=== PATIENT | male | born 1985 | race Caucasian/White ===

== ENCOUNTER 2019-08-10 13:38 | Inpatient (IN) ==
--- NOTE | 2019-08-10 14:56 | Diag Imaging Result Doc PS360 ---
CHEST-2 VIEWS - 08/10/2019 INDICATION: SOB COMPARISON: None FINDINGS: The lungs are normally expanded and clear. Heart size and mediastinal contours are normal. No pneumothorax or pleural effusion. IMPRESSION: Negative exam. Electronically signed by Yuval Morales 08/10/2019 2:53 PM
[2019-08-10 15:10] LABS: BASO# 0.04 X1000 (0.0-0.2); BASO% 0.3 % (0.0-0.8); EOS# 0.04 X1000 (0.0-0.7); EOS% 0.3 % (0.0-10.0); HEMATOCRIT 49.7 % (42.0-52.0); HEMOGLOBIN 17.3 g/dL (14.0-18.0); IMM GRAN# 0.06 X1000 (0.0-0.04); IMM GRAN% 0.4 % (0.0-0.5); LYMPH# 1.68 X1000 (1.2-3.4); LYMPH% 11.5 % (20.5-51.1); MCH 32.5 PG (27-31); MCHC 34.8 g/dL (33-37); MCV 93.2 FL (81-99); MONO# 1.53 X1000 (0.11-0.59); MONO% 10.4 % (1.7-9.3); MPV 10.7 FL (7.4-10.4); NEUT# 11.32 X1000 (1.4-6.5); NEUT% 77.1 % (42.2-75.2); PLT 134 X1000 (130-400); RBC 5.33 XMIL (4.7-6.1); RDW 12.9 % (11.5-14.5); WBC 14.67 X1000 (4.8-10.8)
[2019-08-10 15:12] LABS: INR 1.03; PROTIME 13.6 Seconds (11.0-16.0)
[2019-08-10 15:13] LABS: PTT 28.3 Seconds (22.3-41.8)
[2019-08-10 15:18] LABS: AGAP 20; ALB/GLOB RATIO 1.3; ALBUMIN 3.9 g/dL (3.5-5.0); ALKALINE PHOSPHATASE 65 U/L (32-122); BUN 8 mg/dL (8-22); CALCIUM 9.1 mg/dL (8.8-10.2); CHLORIDE 98 mmol/L (98-107); CK PROFILE 97 U/L (24-204); COSMO 273; ESTIMATED GFR > 60; GLUCOSE 116 mg/dL (70-104); GOT 33 U/L (10-34); GPT 79 U/L (10-44); POTASSIUM 3.4 mmol/L (3.5-5.1); SODIUM 137 mmol/L (136-145); TCO2 19 mmol/L (25-35); TOTAL BILIRUBIN 1.18 mg/dL (0.20-1.00); TOTAL PROTEIN 6.8 g/dL (6.3-8.3)
[2019-08-10 15:28] LABS: EOS 1 % (1-10); LYMPHS 5 % (21-51); MONO 12 % (1-9); SEGS 81 % (42-75)
[2019-08-10] MEDS ORDERED: NS 1,000 ML IV ONE (15:30)
--- NOTE | 2019-08-10 17:19 | Diag Imaging Result Doc PS360 ---
CT ANGIOGRM PULMONARY ARTERIES - 08/10/2019 INDICATION: SOB TECHNIQUE: Axial CT images were obtained after administering intravenous contrast. Coronal MIP images were generated. COMPARISON: None FINDINGS: There are extensive bilateral pulmonary emboli filling every main, lobar, and segmental pulmonary artery. There is right ventricular strain with enlargement of the right ventricle. The lungs are clear of infiltrate. Upper abdominal images are normal. Bones are intact. IMPRESSION: Extensive bilateral pulmonary emboli with a high clot burden. Evidence of right ventricular strain. This report was discussed with Dr. Vargas on 08/10/2019 at 5:10 PM and was readback. This exam was performed using automated exposure control, adjustment of mA or kV according to patient size, and/or use of iterative reconstruction technique Electronically signed by Yuval Morales 08/10/2019 5:16 PM
[2019-08-10 17:24] LABS: URINE SOURCE CLEAN CATCH
[2019-08-10 17:30] LABS: BILIRUBIN URINE NEGATIVE (NEGATIVE); BLOOD URINE NEGATIVE (NEGATIVE); COLOR ORANGE; GLUCOSE URINE NEGATIVE (NEGATIVE); KETONE URINE 40 mg/dL (NEGATIVE); LEUKOCYTES URINE NEGATIVE (NEGATIVE); NITRITE URINE NEGATIVE (NEGATIVE); PH URINE 7.5; PROTEIN URINE 50 mg/dL (NEGATIVE); TURBIDITY URINE CLEAR (CLEAR); UROBILINOGEN URINE NORMAL (NORMAL)
[2019-08-10 17:31] LABS: UR EPITHELIAL CELLS <10 /HPF (<10); URINE BACTERIA NEGATIVE /HPF; URINE RBC <10 /HPF (<10); URINE WBC <10 /HPF (<10)
[2019-08-10 17:38] LABS: SP GRAVITY URINE 1.005
[2019-08-10 17:40] LABS: UR AMPHETAMINES QUAL NONE DETECTED (NONE DETECT); UR BARBITUATES QUAL NONE DETECTED (NONE DETECT); UR BENZODIAZEPIN QUAL NONE DETECTED (NONE DETECT); UR CANNABINOIDS QUAL NONE DETECTED (NONE DETECT); UR COCAINE QUAL NONE DETECTED (NONE DETECT); UR METHADONE QUAL NONE DETECTED (NONE DETECT); UR OPIATES QUAL NONE DETECTED (NONE DETECT); UR OXYCODONE QUAL NONE DETECTED (NONE DETECT); UR PCP QUAL NONE DETECTED (NONE DETECT)
[2019-08-10] MEDS ORDERED: HEPARIN IV ONE (17:48)
--- NOTE | 2019-08-10 17:52 | PROVIDER DOCUMENTATION ---
This chart was entered by Chery Bazzi Scribe, acting as scribe for Eva Bender MD. HPI-General Adult - General Chief Complaint: Palpitations Stated Complaint: ABNORMAL EKG Time Seen by Provider: 08/10/19 13:59 Source: patient, family (mother) Allergies/Adverse Reactions: Patient Allergies Allergy/AdvReac Type Severity Reaction Status Date / Time No Known Allergies Allergy Verified 08/10/19 14:06 Home Medications: Home Medication List Medication Instructions Recorded Confirmed Last Taken Type Carvedilol [Coreg] 12.5 mg PO BID #60 tab 08/15/19 Unknown Rx Omeprazole 40 mg PO DAILY #30 capsule.dr 08/15/19 Unknown Rx Rivaroxaban [Xarelto] 15 mg PO BID #40 tab 08/15/19 Unknown Rx Rivaroxaban [Xarelto] 20 mg PO DAILY #90 tab 08/15/19 Unknown Rx - History of Present Illness -Gen Adult Nature of Presenting Problems: Pt is a 34 yowm complaining of SOB and irregular heart rate from the clinic. Pt states that he had a virus last week and was taking the prescribed cough me dicine when he experienced a LOC in his bedroom. Pt rested the rest of the day and Monday but any activity causes him to lose his breath. Pt appears sweaty but nontoxic in appearance. Location of Pain/Injury: reports: chest (2 days ago, pt stated it felt like a pulled muscle) Pain Radiation: reports: no radiation Quality of Pain: reports: tightness Severity: reports: mild Onset/Duration: reports: 2 days ago Timing: reports: gone now Context/Activities at Onset: reports: light activity Modifying Factors: improves with: lying down. worse with: coughing, exercise Associated Symptoms: reports: syncope (), weakness Review of Systems - Adult - REVIEW OF SYSTEMS - ADULT Constitutional: reports: no symptoms reported Eyes: reports: no symptoms reported Ears, Nose, Mouth & Throat: reports: no symptoms reported Cardiovascular: reports: see HPI, chest pain, syncope () Respiratory: reports: see HPI, cough, shortness of breath Gastrointestinal: denies: abdominal pain, nausea, vomiting Genitourinary: reports: no symptoms reported Musculoskeletal: reports: no symptoms reported Integumentary: reports: no symptoms reported Neurological: reports: see HPI, syncope () Psychiatric: reports: no symptoms reported Endocrine: reports: no symptoms reported Hematologic/Lymphatic: reports: no symptoms reported Allergic/Immunologic: reports: no symptoms reported All Other Systems: Reviewed and Negative Past History - Adult - PAST MEDICAL HISTORY-ADULT Review of Records: reports: Old Records Reviewed, Nursing Assessment Review, Medications Reviewed, Social history reviewed & non-contributory. Major Childhood Illnesses: reports: denies history Cardiovascular: reports: denies history Respiratory: reports: denies history Gastrointestinal: reports: denies history Obstetrical/Gynecological: reports: denies history Genitourinary: reports: denies history Musculoskeletal: reports: denies history Neurological: reports: denies history Endocrine/Immune: reports: denies history Other Conditions: reports: denies history - IMMUNIZATION STATUS Childhood Immunizations: See Nurse Assessment Flu Vaccine: See Nurse Assessment - SOCIAL HISTORY Smoking: cigarettes, greater than 1 pack/day Substance Use: alcohol Alcohol Use Frequency: every day Number of drinks per typical drinking period:: 5-10 drinks Living Situation: alone Physical Exam-General - PHYSICAL EXAM-ADULT Initial Vital Signs Reviewed: Yes (HR 143) - CONSTITUTIONAL General Appearance: appears well, alert, no apparent distress, obese - EYES Eyes: PERRL/EOMI - HEAD, EARS, NOSE, MOUTH & THROAT HENMT: normocephalic/atraumatic, moist mucous membranes, pharyngeal erythema. negative: tonsillar exudate - NECK Neck: non-tender, full range of motion, supple. negative: trachial deviation, tender midline, thyromegaly - RESPIRATORY Respiratory: chest non-tender, lungs clear, normal breath sounds, other (tachypneic) - CARDIOVASCULAR Cardiovascular: normal peripheral pulses, tachycardia - GASTROINTESTINAL (ABDOMEN) Abdominal Exam: normal bowel sounds, non tender, soft - MUSCULOSKELETAL Back Exam: no CVA tenderness, no vertebral tenderness Extremity: normal range of motion, non-tender, normal gait - SKIN Integumentary: normal color, normal turgor, warm/dry - NEUROLOGIC Neurologic: grossly normal - PSYCHIATRIC Psych/Mental Status: normal mood/affect, normal thought content, normal thought process, oriented x 3 Progress - PLAN OF CARE/RESULTS Progress/Plan/Lab Results: Vital Signs - 8 hr 08/10/19 13:39 08/10/19 13:43 08/10/19 13:51 Temperature 98.8 F 98.5 F Pulse Rate 143 H 146 H 136 H Respiratory Rate 20 21 16 Blood Pressure 128/106 O2 Sat by Pulse Oximetry 96 96 Orders Category Date Time Status Cardiac Monitoring DIRECTED Care 08/10/19 14:08 Active IV Insertion ORDERED Care 08/10/19 14:08 Active Notify MD of + Sepsis Screen NOW Care 08/10/19 14:08 Active Notify Physician As Ordered Care 08/10/19 14:08 Active CHEST-1 VIEW [RAD] Stat Exams 08/10/19 14:08 Ordered BLOOD CULTURE [BLDCUL] Stat Lab 08/10/19 14:08 Uncollected CBC WITH DIFF [HEME] Stat Lab 08/10/19 14:08 Uncollected CK PROFILE [SP CHEM] Stat Lab 08/10/19 14:08 Uncollected COMPREHENSIVE METABOLIC PANEL [CHEM] Stat Lab 08/10/19 14:08 Uncollected LACTATE, PLASMA [CHEM] Lab 08/10/19 14:15 Uncollected LACTATE, PLASMA [CHEM] Lab 08/10/19 17:15 Uncollected LACTATE, PLASMA [CHEM] Lab 08/10/19 20:15 Uncollected PROTIME WITH INR [COAG] Stat Lab 08/10/19 14:08 Uncollected PTT [COAG] Stat Lab 08/10/19 14:08 Uncollected TROPONIN T Stat Lab 08/10/19 14:08 Uncollected URINALYSIS W/POSS RFLX CULT [URINALYSIS] Stat Lab 08/10/19 14:08 Uncollected Oxygen Device Stat Oth 08/10/19 14:08 Active Result Diagrams: 08/15/19 05:30 08/15/19 05:30 - REASSESSMENT Reassessment #1 Time Reassessed: 15:29 Status: other (labs reviewed showing elevated WBC, CXR neg, strep and flu neg. awaiting dimer.) Reassessment #2 Time Reassessed: 15:49 Status: other (not currently concerned for sepsis with normal lactate. Elevated d-dimer, will get CTAPE) Reassessment #3 Time Reassessed: 20:49 Status: other (elevated blood pressure, will give hydralazine) - EKG 1 Time of EKG reading by physician:: 13:58 EKG Read and Signed by:: Stanislav Vargas EKG Interpretation (*Must complete 3 of following elements*): Abnormal Rate: 136 Rhythm: Sinus tachycardia ST Wave: non-specific ST changes (ST & T wave abnormality, consider iferior ischemia; ST & T wave abnormality, consider anterolateral ischemia) - XRAY 1 XRAY Study: Chest Impression: See EMR Report (CHEST-2 VIEWS - 08/10/2019 INDICATION: SOB COMPARISON: None FINDINGS: The lungs are normally expanded and clear. Heart size and mediastinal contours are normal. No pneumothorax or pleural effusion. IMPRESSION: Negative exam. Electronically signed by Yuval Morales 08/10/2019 2:53 PM 08/10/19 3312 Interpreting Physician: Yuval Morales MD Dictated Date/Time: 08/10/19 1459 cc: Eva Bender MD; None,PCP) - CT/MRI 1 CT Study: Angiogram Impression: See EMR Report (CT ANGIOGRM PULMONARY ARTERIES - 08/10/2019 INDICATION: SOB TECHNIQUE: Axial CT images were obtained after administering intravenous contrast. Coronal MIP images were generated. COMPARISON: None FINDINGS: There are extensive bilateral pulmonary emboli filling every main, lobar, and segmental pulmonary artery. There is right ventricular strain with enlargement of the right ventricle. The lungs are clear of infiltrate. Upper abdominal images are normal. Bones are intact. IMPRESSION: Extensive bilateral pulmonary emboli with a high clot burden. Evidence of right ventricular strain. This report was discussed with Dr. Vargas on 08/10/2019 at 5:10 PM and was readback. This exam was performed using automated exposure control, adjustment of mA or kV according to patient size, and/or use of iterative reconstruction technique Electronically signed by Yuval Morales 08/10/2019 5:16 PM) Departure - Departure Date of Disposition Decision: 08/10/19 Time of Disposition Decision: 20:11 DIAGNOSIS: Pulmonary emboli, Tachycardia Disposition: ADMITTED INPATIENT 09 Certified Medical Emergency: Emergent Condition: Stable - Critical Care Note This patient required my direct & personal management of CC.: Yes Total Time (mins): 35 Critical Care Statement: This patient required my direct personal management to treat or rule out processes, the absence of which, could potentiallly result in sudden, clinically significant life or limb threatening deterioration. Attestation - Physician/ DAQUAN Attestation Patient care was provided by Advanced Practice Provider:: No The physician spent face to face time with patient:: Yes Advanced Practice Provider documentation review:: Supervising physician onsite and consulted in the evaluation and care of this patient. The physician did have a face to face encounter with the patient. This chart was documented by the indicated scribe, (Chery Bazzi, Shahram) and accurately reflects the services I performed and decisions made by me, Eva Bender MD, as attested by the provider's signature.
[2019-08-10] MEDS ORDERED: HEPARIN 25,000 UNITS/D5W 25,000 UNIT/250 ML IV.SOLN IV SCH (18:00)
[2019-08-10] MEDS ORDERED: APRESOLINE IV ONE (20:43)
[2019-08-10] MEDS ORDERED: KLOR-CON PO ONE (22:03)
[2019-08-10] MEDS ORDERED: LABETALOL IV PRN (22:05)
[2019-08-10] MEDS ORDERED: COREG PO ONE (22:08)
[2019-08-10] MEDS: NS 1,000 ML IV SCH (23:46)
--- NOTE | 2019-08-11 05:48 | HISTORY AND PHYSICAL ---
CHIEF COMPLAINT: Palpitations. HISTORY OF PRESENT ILLNESS: Mr Sami Michelle is a 34-year-old male who does not have any significant past medical history. However, he indicates about 2 weeks ago he did have an upper respiratory infection and went to an Urgent Care Facility, [facility] in [place], and he did receive treatment, following which the patient has continued to have cough, chest pain, shortness of breath as well as palpitations. He also describes having syncope on 1 occasion. The patient now presents to the hospital because of palpitations and during the evaluation in the ER, he had a pulmonary angiogram done, which showed evidence of extensive bilateral pulmonary emboli with high clot burden. There is also evidence of right ventricular strain. The patient has been started on heparin. PAST MEDICAL HISTORY: Unremarkable. PAST SURGICAL HISTORY: He has had tubes in both tympanic membranes in the past. SOCIAL HISTORY: He smokes cigarettes, 1 pack of cigarettes per day. Drinks about 5 to 7 beers per day. Denies any drug use. ALLERGIES: No known drug allergies. FAMILY HISTORY: Positive for diabetes. HOME MEDICATIONS: None. REVIEW OF SYSTEMS: Constitutional: No fever. 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 Eyes: Refractive error. Ears: No hearing loss. Cardiovascular: Chest pain. Respiratory: Cough. Gastrointestinal: No nausea, vomiting. Has diarrhea with abdominal pain. genitourinary: No dysuria. Hematology: No bleeding problems. Psychiatric: No anxiety or depression. Musculoskeletal: No joint pains. Endocrinology: No diabetes or thyroid disease. PHYSICAL EXAMINATION: VITAL SIGNS ARE FOLLOWS: Temperature is 97.9 degrees, pulse 128, respiratory 22, blood pressure 155/99, oxygen saturation is 100%. HEENT: Atraumatic, normocephalic. Eyes anicteric. No oral lesions. NECK: No lymphadenopathy or thyromegaly. CARDIOVASCULAR: S1, S2. RESPIRATORY: Evidence of good air entry bilaterally. ABDOMEN: Soft, nontender. No masses felt. EXTREMITIES: No evidence of edema. CENTRAL NERVOUS SYSTEM: No obvious focal neurologic deficits noted. LABS: CBC: WBC is 14.67, hematocrit is 49.7 with a platelet count of 134,000. Sodium is 137, potassium 3.4 chloride 98, bicarb is 19, BUN is 8, creatinine 1.0. ALT is 79. Urine drug screen is negative. Chest x-ray shows normal study. Pulmonary angiogram showed evidence of extensive bilateral pulmonary emboli with high clot burden; also evidence of right ventricular strain. ASSESSMENT AND PLAN: 1. Acute pulmonary thromboembolism. We will start the patient on heparin infusion. Obtain venous Doppler study of both lower extremities. Also, obtain a 2D echo of the heart in light of right ventricular strain. 2. Hypertension. Optimize blood pressure control using both parenteral as well as oral agents. 3. Alcoholism. Maintain patient on delirium tremens prophylaxis, along with thiamine, folic acid and also multivitamin. Check magnesium and phosphorus levels. 4. Gastrointestinal prophylaxis. Proton pump inhibitor. cc: Solis Morton MD
[2019-08-11] MEDS ORDERED: LIBRIUM PO PRN (06:21)
[2019-08-11 06:38] LABS: BASO# 0.03 X1000 (0.0-0.2); BASO% 0.2 % (0.0-0.8); EOS% 0.8 % (0.0-10.0); HEMATOCRIT 47.6 % (42.0-52.0); IMM GRAN# 0.06 X1000 (0.0-0.04); IMM GRAN% 0.5 % (0.0-0.5); LYMPH# 2.29 X1000 (1.2-3.4); LYMPH% 17.9 % (20.5-51.1); MCH 32.1 PG (27-31); MCHC 33.6 g/dL (33-37); MCV 95.6 FL (81-99); MONO# 1.39 X1000 (0.11-0.59); MONO% 10.9 % (1.7-9.3); MPV 11.1 FL (7.4-10.4); NEUT# 8.89 X1000 (1.4-6.5); NEUT% 69.7 % (42.2-75.2); PLT 136 X1000 (130-400); RBC 4.98 XMIL (4.7-6.1); RDW 13.1 % (11.5-14.5); WBC 12.76 X1000 (4.8-10.8)
[2019-08-11] MEDS: PRILOSEC PO SCH (06:46)
[2019-08-11 07:16] LABS: MAGNESIUM 1.6 mg/dL (1.5-2.7); PHOSPHORUS 2.1 mg/dL (2.7-4.5)
[2019-08-11] MEDS ORDERED: HEPARIN IV PRN (07:25)
[2019-08-11] MEDS ORDERED: SODIUM PHOSPHATE 35 MMOL in NS 250 ML IV ONE (07:51)
[2019-08-11] MEDS: FOLIC ACID PO SCH (08:06)
[2019-08-11] MEDS: VITAMIN B-1 PO SCH (08:06)
[2019-08-11] MEDS ORDERED: COREG PO ONE (08:12)
[2019-08-11] MEDS ORDERED: KLOR-CON PO SCH (09:00)
[2019-08-11] MEDS ORDERED: COREG PO SCH (09:00)
[2019-08-11 09:09] LABS: AGAP 25; BUN 7 mg/dL (8-22); CALCIUM 9.1 mg/dL (8.8-10.2); CHLORIDE 102 mmol/L (98-107); COSMO 282; CREATININE 0.9 mg/dL (0.7-1.2); GLUCOSE 110 mg/dL (70-104); POTASSIUM 3.5 mmol/L (3.5-5.1); SODIUM 142 mmol/L (136-145); TCO2 15 mmol/L (25-35)
--- NOTE | 2019-08-11 09:13 | PROGRESS NOTE ---
DATE: 08/11/2019 SUBJECTIVE: The patient reports still short of breath with some chest discomfort but better in comparing with yesterday. OBJECTIVE: Vital Signs: Temperature 99.9, heart rate 112, respiratory rate 17, blood pressure 142/90, O2 saturation 96% on 2 L nasal cannula. General Examination: This is a 34-year-old, morbidly obese, male, lying in bed, in no acute distress. Cardiovascular Examination: S1 and S2 heard. No murmurs, gallops, or rubs. Regular rate and rhythm. Respiratory Examination: Clear bilaterally to auscultation. No work of breathing or using accessory muscles. Abdomen: Soft, nontender to palpation. Bowel sounds present. No organomegaly. Extremities: No clubbing, cyanosis, or edema. Peripheral pulses present in both legs. Neurological Examination: The patient is alert and oriented x3. Moves 4 extremities. Laboratory Data: White cell count 12.76, hemoglobin 16.0, hematocrit 47.6, platelets 136,000. BMP is pending. Phosphorus 2.1. ASSESSMENT AND PLAN: 1. Acute pulmonary embolism. Patient has been started since admission on a heparin drip. At admission, also they decided to check troponins. Two have been checked and those are normal. An echocardiogram has been ordered also to rule out any right ventricular strain. We will continue to monitor this patient closely. 2. Hypertension. Blood pressure is under control. We will continue with the same management. 3. Alcoholism. We will continue with delirium tremens prophylaxis and thiamine. We will continue to monitor this patient closely here in the PVC unit. cc: Mario Domínguez MD
--- NOTE | 2019-08-11 09:58 | EKG Report ---
Test Performed on : 08/11/2019 07:07:46 AM Test Reason : TACHYCARDIA Blood Pressure : / mmHG Vent. Rate : 112 BPM Atrial Rate : 112 BPM P-R Int : 136 ms QRS Dur : 090 ms QT Int : 344 ms P-R-T Axes : 053 067 -17 degrees QTc Int : 469 ms Sinus tachycardia. T wave abnormality, consider inferior ischemia T wave abnormality, consider anterior ischemia Abnormal ECG When compared with ECG of 10-AUG-2019 13:51, (Unconfirmed) Nonspecific T wave abnormality has replaced inverted T waves in Lateral leads Confirmed by Bobby TIMMONS, Juan Manuel ([id number]) on 08/12/2019 8:38:28 AM
[2019-08-11] MEDS: HEPARIN 25,000 UNITS/D5W 25,000 UNIT/250 ML IV.SOLN IV SCH (11:09)
[2019-08-11] MEDS: NS 1,000 ML IV SCH (13:08)
--- NOTE | 2019-08-11 13:30 | Diag Imaging Result Doc PS360 ---
US ABDOMEN-COMPLETE - 08/11/2019 INDICATION: abnormal lfts COMPARISON: Chest CT from earlier FINDINGS: There is severe diffuse fatty change of the liver. The gallbladder, pancreas, spleen, and both kidneys are normal. There is a left renal cyst measuring 1.9 cm. The spleen measures 11.8 x 3.4 c m. Common bile duct measures 3 mm. Aorta, IVC, and main portal vein are patent. IMPRESSION: Severe fatty liver. Electronically signed by Yuval Morales 08/11/2019 1:28 PM
[2019-08-11 21:27] LABS: ALLEN TEST YES; BLOOD TYPE ARTERIAL; HCO3-(ACT) 21.7 mmoll (20.0-26.0); MODALITY CANNULA; O2(CT) 21.8 mL/dL (15.0-23.0); O2HB 95.3 % (95.0-99.0); PCO2(98.6) 22 mmHg (35-45); PO2(98.6) 78 mmHg (60-100); SAMPLE BLOOD; SAO2 97.5 % (95.0-100.0); THB 16.3 g/dL (11.5-17.4); pH(98.6) 7.49 (7.35-7.45)
[2019-08-11] MEDS: COREG PO SCH (22:11)
--- NOTE | 2019-08-11 22:32 | EKG Report ---
Test Performed on : 08/11/2019 9:14:53 PM Test Reason : Near-Syncope,Dyspnea,Hypoxia Blood Pressure : / mmHG Vent. Rate : 123 BPM Atrial Rate : 123 BPM P-R Int : 138 ms QRS Dur : 092 ms QT Int : 314 ms P-R-T Axes : 050 075 -26 degrees QTc Int : 449 ms Sinus tachycardia. Incomplete right bundle branch block ST & T wave abnormality, consider inferior ischemia ST & T wave abnormality, consider anterolateral ischemia Abnormal ECG When compared with ECG of 11-AUG-2019 07:07, (Unconfirmed) Incomplete right bundle branch block is now present Confirmed by Bobby TIMMONS, Juan Manuel ([id number]) on 08/12/2019 7:21:34 PM
[2019-08-12] MEDS: HEPARIN 25,000 UNITS/D5W 25,000 UNIT/250 ML IV.SOLN IV SCH ×2 (00:46→14:00)
[2019-08-12] MEDS: NS 1,000 ML IV SCH ×2 (00:47→13:58)
[2019-08-12 04:04] LABS: BASO# 0.06 X1000 (0.0-0.2); BASO% 0.4 % (0.0-0.8); EOS# 0.13 X1000 (0.0-0.7); EOS% 0.9 % (0.0-10.0); HEMATOCRIT 43.7 % (42.0-52.0); IMM GRAN# 0.11 X1000 (0.0-0.04); IMM GRAN% 0.8 % (0.0-0.5); LYMPH# 3.41 X1000 (1.2-3.4); LYMPH% 23.9 % (20.5-51.1); MCHC 34.3 g/dL (33-37); MCV 96.3 FL (81-99); MONO# 1.48 X1000 (0.11-0.59); MONO% 10.4 % (1.7-9.3); MPV 10.8 FL (7.4-10.4); NEUT% 63.6 % (42.2-75.2); PLT 118 X1000 (130-400); RBC 4.54 XMIL (4.7-6.1); RDW 13.2 % (11.5-14.5); WBC 14.29 X1000 (4.8-10.8)
[2019-08-12 04:38] LABS: AGAP 18; BUN 12 mg/dL (8-22); CALCIUM 8.2 mg/dL (8.8-10.2); CHLORIDE 106 mmol/L (98-107); COSMO 282; CREATININE 1.1 mg/dL (0.7-1.2); ESTIMATED GFR > 60; GLUCOSE 116 mg/dL (70-104); PHOSPHORUS 3.9 mg/dL (2.7-4.5); POTASSIUM 3.6 mmol/L (3.5-5.1); SODIUM 141 mmol/L (136-145); TCO2 17 mmol/L (25-35)
[2019-08-12] MEDS: PRILOSEC PO SCH ×2 (05:47→06:51)
--- NOTE | 2019-08-12 07:40 | EKG Report ---
Test Performed on : 08/10/2019 1:51:50 PM Test Reason : ED. NO EKG ORDER FOR MUSE Blood Pressure : / mmHG Vent. Rate : 136 BPM Atrial Rate : 136 BPM P-R Int : 114 ms QRS Dur : 092 ms QT Int : 334 ms P-R-T Axes : 018 057 -05 degrees QTc Int : [address] & T wave abnormality, consider inferior ischemia ST & T wave abnormality, consider anterolateral ischemia Abnormal ECG No previous ECGs available Unconfirmed Result
[2019-08-12] MEDS: COREG PO SCH ×2 (09:10→21:26)
[2019-08-12] MEDS: VITAMIN B-1 PO SCH (09:11)
[2019-08-12] MEDS: FOLIC ACID PO SCH (09:11)
[2019-08-12 10:06] LABS: HEPATITIS PROFILE ACUTE SEE COMMENTS
--- NOTE | 2019-08-12 12:33 | PROGRESS NOTE ---
DATE: 08/12/2019 SUBJECTIVE: Patient reports feeling still short of breath, but less in comparing with yesterday. No chest pressure. OBJECTIVE: Vital Signs: Temperature 98.7 degrees, heart rate 100, respiratory rate 22, blood pressure 100/83, O2 saturation 98% on 5 L nasal cannula. General Examination: This is a 34-year- old, morbidly obese, male, lying in bed in no acute distress. Cardiovascular exam: S1 and S2 heard. No murmurs, gallops, or rubs. Regular rate and rhythm. Respiratory exam: Clear bilaterally to auscultation. No work of breathing or using accessory muscles. Abdomen: Soft, nontender to palpation. Bowel sounds present. No organomegaly. Extremities: No clubbing, cyanosis, or edema. Peripheral pulses present in both legs. Neurological exam: Patient alert and oriented x3. Moves 4 extremities. LABORATORY DATA: Repeat white blood cell count is 14,000. ASSESSMENT AND PLAN: 1. Acute respiratory failure secondary to pulmonary embolism. The patient continues to be on heparin drip. Clinically, this patient is still short of breath, requiring 5 liters of oxygen by nasal cannula. The patient reports still feeling short of breath when he tries to walk some. Troponin has been checked for right heart strain and does appear negative. Echocardiogram has been done today and has not been read yet. At this point, we will continue with current management. 2. Deep vein thrombosis in both lower extremities. That has been confirmed yesterday. Actually we will continue with the same treatment with heparin drip. 3. Alcoholism. Will continue with deep vein thrombosis prophylaxis and thiamine. We will continue to monitor this patient closely here in the PVC unit. cc: Mario Domínguez MD
--- NOTE | 2019-08-12 17:21 | HEMO/ONC CONSULTATION ---
DATE: 08/12/2019 Patient seen in initial consultation regarding PTE at the request of Dr. Carroll. HPI: Sami was a healthy 34-year-old man who developed fevers and chills approximately 2 weeks ago and was seen by Urgent Care. His symptoms were improving but he stayed in the bed for 3 or 4 days and then subsequently developed increasing shortness of breath and palpitations, as well as 1 episode of syncope. He presented to the emergency room for the same and was found on CT angio to have extensive bilateral pulmonary emboli with high clot burden and evidence of right ventricular strain. He has been started on heparin and has noted some improvement but persistent dyspnea is still present. PAST MEDICAL HISTORY: None prior. PAST SURGICAL HISTORY: Tympanic tubes as a child. ALLERGIES: No known drug allergies. MEDICATIONS AT HOME: None. SOCIAL HISTORY: Patient smokes 1 pack per day of cigarettes for the last 10 years. He drinks 5 or 6 beers per day. Denies any illicit drug use. FAMILY MEDICAL HISTORY: Is positive for diabetes but no family history of thrombosis that he or his mother is aware of. REVIEW OF SYSTEMS: Pertinent positives and negatives as per HPI. All other review of systems are negative. PHYSICAL EXAMINATION: Temperature 98.7 degrees, pulse 100, respiratory rate 22, blood pressure 100/83, O2 saturation 98% on 5 L nasal cannula.General: This is an obese, chronically ill- appearing man in no acute distress. His mother is at the bedside during consultation. Eyes: Sclerae anicteric. Cardiovascular: Regular rate and rhythm. Normal S1, S2. No murmurs, rubs, or gallops. Pulmonary: Lungs clear auscultation bilaterally without wheezes, rales, rhonchi. Abdomen: Obese but soft, nontender, nondistended with normoactive bowel sounds. Extremities: 1+ bilateral pretibial edema. Neurologic: Alert and oriented x3. Gait not assessed as patient is in a hospital bed during consultation. Rest examination unremarkable. LABORATORY DATA: White count 14.3, hemoglobin 15, platelet count a 118,000. PTT 94.7. ABG pH 7.49, pCO2 22, PaO2 78 on 40% nasal cannula. Sodium 141, potassium 3.6, bicarb 17, creatinine 1.1, calcium 8.2. Troponin 0.024. IMAGING: Pulmonary arteriogram 08/10/2019 shows extensive bilateral pulmonary emboli with high clot burden and evidence of right ventricular strain. Per the patient, venous ultrasound showed right lower extremity DVT. ASSESSMENT AND PLAN: 1. Right lower extremity deep vein thrombosis and extensive pulmonary thromboembolism: Unprovoked. We discussed the natural history, prognosis, and treatment of deep vein thrombosis and pulmonary thromboembolism. Given his young age and essentially unprovoked deep vein thrombosis and extensive pulmonary thromboembolism I have recommended hypercoagulability workup. I have sent labs for Factor 5 Leiden and prothrombin gene testing as well as beta 2 glycoprotein and cardiolipin antibodies at this time. Other testing unable to be performed as patient has an acute clot and is on anticoagulation. I recommended at least 1 year of anticoagulation given his overall high risk of recurrence. Pending further workup, we can consider long-term anticoagulation if needed. When he is clinically stable I would recommend transitioning to novel oral anticoagulant such as Eliquis or Xarelto. I will see him back in the clinic as an outpatient for further management. 2. Right heart strain: Clinically he is improving. Troponins are negative. Echocardiogram is pending. Continue to monitor. 3. Alcoholism: Monitor closely for any evidence of withdrawal. Encouraged cutting back when he is discharged from the hospital. 4. Hypoxia: Related to PTE. Continue oxygen support. Wean as tolerated. This is a copy this dictation to Dr. Carroll. cc: Ruba Miller MD
--- NOTE | 2019-08-12 21:41 | ECHO REPORT ---
ORDER DATE: 08/10/2019 INTERPRETING PHYSICIAN: Dr. Quesada REQUESTING PHYSICIAN: Hospitalist. CLINICAL INDICATIONS: Pulmonary embolism. The study was technically very difficult. Optison was added to optimize visualization of endocardium. M-MODE MEASUREMENTS: Left ventricle end diastole: 2.8 cm. Left ventricle end systole: 2.4 cm. Posterior wall: 1.2 cm. Interventricular septum: 1.3 cm. Left atrium: 3.6 cm. Aortic diameter: 2.8 cm. SUMMARY OF 2-DIMENSIONAL IMAGIN. Left ventricular function is probably normal. There is flattening of the septum with paradoxical contractility. The right ventricle is markedly dilated and significantly hypokinetic. 2. The tricuspid valve shows moderate degree of regurgitation. 3. The pulmonary pressure is estimated at 46 to 51 mmHg. 4. The aortic valve has three cusps. Color flow mapping unremarkable. 5. The mitral valve looks grossly normal. 6. The pulse wave Doppler of mitral inflow shows mild reversal of the E and the A ratio. 7. Tissue Doppler of septal and lateral mitral annulus averages 8 cm. There is no diastolic dysfunction. 8. The pulmonic valve appears to be grossly within normal range. Color flow mapping shows no significant regurgitation. 9. There is no pericardial effusion, mass, and no thrombus. SUMMARY: This study is consistent with a significant pulmonary embolism with significant right ventricular enlargement and dysfunction. The left ventricle appears to be grossly normal. There is pulmonary hypertension estimated at 46 to 51 mmHg. Clinical correlation is recommended. cc: MD Solis Hernandez MD
[2019-08-12] MEDS ORDERED: BLISTEX MEDICATED BERRY LIP BALM TOP PRN (23:27)
[2019-08-13] MEDS: HEPARIN 25,000 UNITS/D5W 25,000 UNIT/250 ML IV.SOLN IV SCH ×3 (02:01→14:55)
[2019-08-13] MEDS: NS 1,000 ML IV SCH ×4 (02:02→17:15)
[2019-08-13 05:44] LABS: BASO# 0.04 X1000 (0.0-0.2); BASO% 0.4 % (0.0-0.8); EOS# 0.14 X1000 (0.0-0.7); EOS% 1.5 % (0.0-10.0); HEMATOCRIT 42.4 % (42.0-52.0); HEMOGLOBIN 13.8 g/dL (14.0-18.0); IMM GRAN# 0.07 X1000 (0.0-0.04); IMM GRAN% 0.8 % (0.0-0.5); LYMPH# 2.66 X1000 (1.2-3.4); LYMPH% 29.1 % (20.5-51.1); MCH 32.4 PG (27-31); MCHC 32.5 g/dL (33-37); MCV 99.5 FL (81-99); MONO# 0.92 X1000 (0.11-0.59); MONO% 10.1 % (1.7-9.3); MPV 11.4 FL (7.4-10.4); NEUT# 5.31 X1000 (1.4-6.5); NEUT% 58.1 % (42.2-75.2); PLT 112 X1000 (130-400); RBC 4.26 XMIL (4.7-6.1); RDW 13.2 % (11.5-14.5); WBC 9.14 X1000 (4.8-10.8)
[2019-08-13 05:59] LABS: AGAP 16; BUN 13 mg/dL (8-22); CALCIUM 8.2 mg/dL (8.8-10.2); CHLORIDE 103 mmol/L (98-107); COSMO 274; CREATININE 0.9 mg/dL (0.7-1.2); ESTIMATED GFR > 60; GLUCOSE 104 mg/dL (70-104); PHOSPHORUS 3.4 mg/dL (2.7-4.5); POTASSIUM 3.5 mmol/L (3.5-5.1); SODIUM 137 mmol/L (136-145); TCO2 18 mmol/L (25-35)
[2019-08-13] MEDS: PRILOSEC PO SCH (06:46)
[2019-08-13] MEDS: COREG PO SCH ×2 (08:46→20:32)
[2019-08-13] MEDS: FOLIC ACID PO SCH (08:46)
[2019-08-13] MEDS: VITAMIN B-1 PO SCH (08:46)
--- NOTE | 2019-08-13 10:38 | PROGRESS NOTE ---
DATE: 08/13/2019 SUBJECTIVE: The patient reports breathing better. He is still requiring 5 L of oxygen by nasal cannula. No other symptoms noted. OBJECTIVE: Vital Signs: Temperature 98.2 degrees, heart rate 90, respiratory rate 22, blood pressure 121/83, O2 saturation 98% on 5 L nasal cannula. General: This is a morbidly obese, 34- year-old, male, lying in bed in no acute distress. Cardiovascular: S1, S2 heard. No murmurs, gallops, or rubs. Regular rate and rhythm. Respiratory: Clear bilaterally to auscultation. No work of breathing or using accessory muscles. Abdomen: Soft. Nontender to palpation. Bowel sounds present. No organomegaly. Extremities: No clubbing, cyanosis, or edema. Peripheral pulses present in both legs. Neurological: The patient is alert and oriented x3. Moves all 4 extremities. LABORATORY DATA: Reviewed. ASSESSMENT AND PLAN: 1. Acute hypoxemic respiratory failure secondary to large pulmonary embolism. Clinically, this patient reports feeling a little bit better. Continues to require 5 liters of oxygen by nasal cannula. Echocardiogram showed large ventricular enlargement. The patient has been seen by Hematology, and they ordered some lab tests, and they recommended to have this patient on anticoagulation for at least a year. Will follow their recommendations. 2. Deep venous thrombosis to both lower extremities. Will continue with current management. Patient is on heparin drip. 3. Alcoholism. Patient advised to quit drinking. The patient is on thiamine. Will continue to monitor this patient closely in the PVC unit. cc: Mario Domínguez MD MTDD
[2019-08-14] MEDS: HEPARIN 25,000 UNITS/D5W 25,000 UNIT/250 ML IV.SOLN IV SCH (02:27)
[2019-08-14] MEDS: NS 1,000 ML IV SCH ×3 (04:32→20:10)
[2019-08-14 05:48] LABS: BASO# 0.03 X1000 (0.0-0.2); BASO% 0.4 % (0.0-0.8); EOS# 0.13 X1000 (0.0-0.7); EOS% 1.7 % (0.0-10.0); HEMATOCRIT 38.6 % (42.0-52.0); IMM GRAN# 0.06 X1000 (0.0-0.04); IMM GRAN% 0.8 % (0.0-0.5); LYMPH# 2.35 X1000 (1.2-3.4); LYMPH% 31.2 % (20.5-51.1); MCH 32.8 PG (27-31); MCHC 33.7 g/dL (33-37); MCV 97.5 FL (81-99); MONO# 0.87 X1000 (0.11-0.59); MONO% 11.5 % (1.7-9.3); MPV 11.5 FL (7.4-10.4); NEUT% 54.4 % (42.2-75.2); PLT 114 X1000 (130-400); RBC 3.96 XMIL (4.7-6.1); WBC 7.54 X1000 (4.8-10.8)
[2019-08-14] MEDS: PRILOSEC PO SCH (06:04)
[2019-08-14 06:29] LABS: AGAP 13; BUN 12 mg/dL (8-22); CALCIUM 8.3 mg/dL (8.8-10.2); CHLORIDE 102 mmol/L (98-107); COSMO 277; ESTIMATED GFR > 60; GLUCOSE 100 mg/dL (70-104); PHOSPHORUS 3.8 mg/dL (2.7-4.5); POTASSIUM 3.5 mmol/L (3.5-5.1); SODIUM 139 mmol/L (136-145); TCO2 24 mmol/L (25-35)
[2019-08-14] MEDS: VITAMIN B-1 PO SCH (08:39)
[2019-08-14] MEDS: FOLIC ACID PO SCH (08:39)
[2019-08-14] MEDS: COREG PO SCH ×2 (08:39→20:10)
--- NOTE | 2019-08-14 10:04 | Extremity Venous Study ---
PROCEDURE NAME: Venous U/S Bilateral Legs - 08/11/2019 STUDY: Bilateral lower extremity venous duplex and color flow imaging study using the [employer] E9 ultrasound system with a 9 L-D transducer. REFERRING PHYSICIAN: Dr. Morton. IDENTIFICATION: A 34-year-old male. OCCUPATIONAL PHYSICIAN: Susan Richards RVT. INDICATIONS: The patient has evidence of pulmonary embolus. He has been not feeling well for the last 2 weeks. Rule out deep venous thrombosis. FINDINGS: The right common femoral vein and its branches, deep and superficial femoral veins were satisfactorily imaged. There is acute deep venous thrombosis involving the right superficial femoral vein and extending distally into the right popliteal vein and the small veins below the right knee. The right great saphenous vein was compressible throughout its length. There was evidence of clot coming at the takeoff of the right lesser saphenous vein. INTERPRETATION: Acute long-segment deep venous thrombosis, right lower extremity, as described above. The left common femoral vein and its branches, deep and superficial femoral veins were satisfactorily imaged. There was flow through them and were compressible. Left popliteal vein and deep veins below the left knee were all compressible and had flow through them. Superficial veins of the left lower extremity were compressible throughout their length. INTERPRETATION: No evidence of acute deep or superficial venous thrombosis, left lower extremity. cc: MD Solis Newsome MD
[2019-08-14] MEDS: XARELTO PO SCH ×2 (10:44→20:10)
--- NOTE | 2019-08-14 10:55 | PROGRESS NOTE ---
DATE: 08/14/2019 SUBJECTIVE: Patient reports breathing better. Nursing staff reports that he was requiring less oxygen supplementation. He is requiring 2 L of oxygen by nasal cannula. OBJECTIVE: Vital Signs: Temperature 97.5 degrees, heart rate 89, respiratory 17, blood pressure 112/87, and O2 saturation 96% 2 L nasal cannula. General: This is a morbidly obese, 34-year-old male lying in bed in no acute distress. Cardiovascular: S1, S2 heard. No murmurs, gallops, or rubs. Regular rate and rhythm. Respiratory: Clear bilaterally to auscultation. No work of breathing or using accessory muscles. Abdomen: Soft. Nontender to palpation. Bowel sounds present. No organomegaly. Extremities: No clubbing, cyanosis, or edema. Peripheral pulses present in both legs. Neurological: Patient alert and oriented x3. Moves all 4 extremities. LABORATORY DATA: Reviewed. ASSESSMENT AND PLAN: 1. Acute hypoxemic respiratory failure secondary to large pulmonary embolism. Clinically, this patient is doing fine. Requiring less oxygen supplementation today. He is requiring 2 L of oxygen by nasal cannula. At this point, we are going to stop heparin drip. We will start Xarelto 15 mg p.o. b.i.d. for 21 days, and then we will switch to Xarelto 20 p.o. daily. Recommendation from hematology is to keep this patient on blood thinners for at least a year. We are going to continue to monitor this patient closely. 2. Deep vein thrombosis prophylaxis on both lower extremities. We will continue with anticoagulation. In this case, it is going to be Xarelto. 3. Alcoholism. Patient advised to quit drinking alcohol. The patient is on thiamine. We will continue to monitor this patient closely in the PVC unit. cc: Mario Domínguez MD [facility]
[2019-08-15] MEDS: PRILOSEC PO SCH (06:03)
[2019-08-15 06:13] LABS: BASO# 0.02 X1000 (0.0-0.2); BASO% 0.3 % (0.0-0.8); EOS# 0.08 X1000 (0.0-0.7); EOS% 1.2 % (0.0-10.0); HEMATOCRIT 38.6 % (42.0-52.0); HEMOGLOBIN 12.9 g/dL (14.0-18.0); IMM GRAN# 0.04 X1000 (0.0-0.04); IMM GRAN% 0.6 % (0.0-0.5); LYMPH# 1.66 X1000 (1.2-3.4); LYMPH% 24.6 % (20.5-51.1); MCH 32.6 PG (27-31); MCHC 33.4 g/dL (33-37); MCV 97.5 FL (81-99); MONO# 0.66 X1000 (0.11-0.59); MONO% 9.8 % (1.7-9.3); MPV 11.3 FL (7.4-10.4); NEUT# 4.28 X1000 (1.4-6.5); NEUT% 63.5 % (42.2-75.2); PLT 124 X1000 (130-400); RBC 3.96 XMIL (4.7-6.1); RDW 13.2 % (11.5-14.5); WBC 6.74 X1000 (4.8-10.8)
[2019-08-15 06:47] LABS: AGAP 15; BUN 12 mg/dL (8-22); CALCIUM 8.8 mg/dL (8.8-10.2); CHLORIDE 108 mmol/L (98-107); COSMO 285; ESTIMATED GFR > 60; GLUCOSE 102 mg/dL (70-104); PHOSPHORUS 4.2 mg/dL (2.7-4.5); POTASSIUM 3.3 mmol/L (3.5-5.1); SODIUM 143 mmol/L (136-145); TCO2 20 mmol/L (25-35)
[2019-08-15] MEDS: COREG PO SCH (08:47)
[2019-08-15] MEDS: NS 1,000 ML IV SCH (08:47)
[2019-08-15] MEDS: FOLIC ACID PO SCH (08:47)
[2019-08-15] MEDS: XARELTO PO SCH (08:47)
[2019-08-15] MEDS: VITAMIN B-1 PO SCH (08:47)
[2019-08-15 11:28] VITALS: BP 125/76
--- NOTE | 2019-08-15 20:43 | DISCHARGE SUMMARY ---
ADMISSION DATE: 08/10/2019 DISCHARGE DATE: 08/15/2019 DISCHARGE DIAGNOSIS: 1. Acute pulmonary thromboembolism. 2. Right ventricular strain. 3. Hypertension. 4. Acute respiratory failure secondary to condition #1. 5. Hypertension. 6. Alcoholism. CONSULTATIONS: Hematology/oncology, Dr. Miller. PROCEDURES: 1. Chest x-ray done on admission showed negative exam. Pulmonary arteriogram showed extensive bilateral pulmonary emboli with a high clot burden with evidence of right ventricular strain. 2. Abdominal ultrasound showed severe fatty liver. 3. Echocardiogram showed significant pulmonary embolism with significant right ventricular enlargement and dysfunction. The left ventricle appears to be grossly normal. There is pulmonary hypertension estimated to 46 to 51 mmHg. HOSPITAL COURSE: This is a 34-year-old male with unremarkable past medical history who presented to the emergency department complaining of 2-week history of upper respiratory infection that was treated with antibiotics and also described one episode of syncope. Patient decided to come to the emergency department because of palpitations and because of shortness of breath. He had a pulmonary angiogram which showed evidence of extensive bilateral pulmonary emboli so he was admitted to the hospital. Placed on heparin drip. The patient was requiring a non-rebreather mask. The patient was admitted to the hospital for 5 days and his oxygen needs were progressively trending down. At the time of discharge, the patient is not requiring any oxygen supplementation. We decided to switch heparin drip to Xarelto 15 mg p.o. b.i.d. for 20 days and then he will continue with 20 mg p.o. daily. Hematology/oncology has been consulted. Ordered some exams and he is going to be seen in the office for results of those. The patient is being discharged in stable condition. DISCHARGE PHYSICAL EXAMINATION: Vitals: Temperature 98.3 degrees, heart rate 90, respiratory rate 20, blood pressure 125/76, O2 saturation 95% on room air. General Examination: This is a morbidly obese, 34-year-old male, lying in bed, in no acute distress. Cardiovascular: S1, S2 heard. No murmurs, gallops, or rubs. Regular rate and rhythm. Respiratory Exam: Clear bilaterally to auscultation. No work of breathing or using accessory muscles. Abdomen: Soft, nontender to palpation. Bowel sounds present. No organomegaly. Extremities: No clubbing, cyanosis, or edema. Peripheral pulses present in both legs. Neurological: The patient is alert and oriented x3. Moves 4 extremities. DISCHARGE DISPOSITION: 1. Home to self-care. 2. Xarelto 15 mg 1 tablet p.o. b.i.d. for 20 days and then 20 mg p.o. daily. 3. Coreg 12.5 mg 1 tablet p.o. b.i.d. 4. Omeprazole 40 mg 1 tablet p.o. daily. 5. Follow up with hematology oncology, Dr. Ruba Miller, in 1 to 2 weeks. cc: Mario Domínguez MD
== END 2019-08-15 12:15 | disposition home or self-care (01) ==
LOC: ED 13:38 → SUATTDRO 22:17 → 2N 22:17
PROVIDERS: ATTEND Internal Medicine